=== PATIENT | female | born 1940 | race Caucasian/White ===

== ENCOUNTER 2016-03-22 18:38 | Inpatient (IN) | payer OTHER, BC ==
[~2016-03-22] VITALS: Ht 157.5 cm; Wt 84.4 kg
--- NOTE | ~2016-03-22 | EKG ---
[address] [address] ELECTROCARDIOGRAM REPORT Name: LUIS REDMOND Room #: 208-P [facility] IN M.R.#: [id number] Admission: 03/22/16 Attend Phys: Leo Treviño Discharge: Date of : 42 Report #: [id number] THIS REPORT FOR: //name// [facility] ED Test Date: 2016-03-22 Test Time: 18:42:22 Pat Name: LUIS SERRANO Department: Room: 208 Gender: F [employer] Attendant: [facility] : 1940 Requested By: Kaycee Huerta Order Number: [id number] MD: Christ Trujillo Measurements Intervals [place] Rate: 82 P: 53 NH: 148 QRS: -6 QRSD: 94 T: -6 QT: 402 QTc: 470 Interpretive Statements Sinus rhythm Borderline T abnormalities, diffuse leads No previous ECG available for comparison Electronically Signed On 03-23-2016 8:20:57 LANDSCAPE DESIGNER by Christ Trujillo [email or web address] <ELECTRONICALLY SIGNED> By: Christ Trujillo MD 03/23/16 0820 184 41 Christ Trujillo MD /TEJAL
--- NOTE | ~2016-03-22 | HC ---
[facility] [place] [address] CONSULTATION Name: TIFFANIE SERRANOLUIS Raul Room #: 208-P [facility] IN .R.#: [id number] Admission: 03/22/16 Attend Phys: Leo Treviño Discharge: Date of : 42 Report #: [id number] THIS REPORT FOR: //name// CC: Leo Treviño Deborah Garnica DATE OF SERVICE: 03/23/2016 INDICATION: Elevated cardiac enzymes. HISTORY OF PRESENT ILLNESS: This is a very pleasant 76-year-old white female patient with a past history of dyslipidemia, hypertension, who presented to the Emergency Room because of shortness of breath. The patient states that the shortness of breath initially was present with exertion and developed associated nausea. She did not have any significant resting symptomatology, but it began quite suddenly from walking in her house from the kitchen. She had associated dizziness and lightheadedness, but had no chest tightness, heaviness, or fullness initially until it became a full pressure sensation after she sat down to rest. She states that she had never had any shortness of breath like this before and it only occurred when she tried to get up and move around. She had no recent fever, chills, night sweats. No cough. No productive purulent nasal discharge either. She had no dependent or nondependent edema and has not felt any significant palpitations. PAST MEDICAL HISTORY: Significant for: 1. Anxiety, depression syndrome. 2. Hypertension. 3. Migraine headaches. ALLERGIES: ENALAPRIL which caused anaphylaxis. MEDICATIONS: At home are levothyroxine 0.125 daily, amlodipine, pantoprazole, Zoloft, Demadex, and Imitrex. PAST SURGICAL HISTORY: 1. Appendectomy. 2. Thyroidectomy. 3. Broken leg. 4. Right total knee replacement. ELECTROCARDIOGRAM: Demonstrates normal sinus rhythm, regular ____, nonspecific ST-T wave changes. LABORATORY DATA: Demonstrates a potassium of 3.5, BUN and creatinine are 15 and 0.8. H and H is 14.0 and 43.4 with a platelet count of 275,000. [facility] [address] [place] [address] CONSULTATION Name: LUIS REDMOND Room #: 208-P [facility] IN ..#: [id number] Admission: 03/22/16 Attend Phys: Leo Treviño Discharge: Date of : 42 Report #: [id number] RADIOLOGIC: Chest x-ray failed to demonstrate any acute changes. REVIEW OF SYSTEMS: Except for symptoms previously mentioned and those that commensurate with comorbid state, the 10-point review of system is negative. PHYSICAL EXAMINATION: GENERAL: Well-developed, well-nourished white female, resting comfortably in no acute distress. VITAL SIGNS: Noted and reviewed in the chart. HEENT: Normocephalic, atraumatic. Pupils are equal, round, reactive to light and accommodation. Extraocular muscles are intact. Sclerae and conjunctivae are anicteric. NECK: JVD is normal. Carotid upstrokes are bilaterally symmetrical. No bruits are heard. No thyromegaly. No lymphadenopathy. LUNGS: Clear to auscultation. No wheezes, rhonchi or crackles. No CVA tenderness. CARDIAC: Demonstrates a regular rhythm. Normal first and second heart sounds. No ventricular or atrial gallops, no rubs noted. No murmurs. No lifts or heaves, PMI normal. ABDOMEN: Soft, nontender, nondistended. Normal bowel sounds. EXTREMITIES: Without cyanosis, clubbing or edema. Distal pulses are intact. DTR symmetrical. NEUROLOGIC: Cranial nerves 2-12 are grossly normal and symmetrical. PSYCHIATRIC: Alert, oriented with normal affect. SKIN: Warm and dry. IMPRESSION AND PLAN: 1. Exertional dyspnea. The patient's D-dimer is elevated and spiral CT demonstrates the presence of a pulmonary embolus. I am going to get an echocardiogram to confirm the diagnosis and that there is no other etiology for shortness of breath and then we will proceed accordingly. 2. Hypertension ____ at this junction, continue monitoring closely. 3. Elevated troponins ____ this is not a nonSTEMI, but likely due to pulmonary emboli. <ELECTRONICALLY SIGNED> By: Bryan Raygoza MD 03/24/16 1133 02 0100 Bryan Raygoza MD /nt
--- NOTE | ~2016-03-22 | 2DMMODE ---
[facility] [place] [address] 2 D/M-MODE ECHOCARDIOGRAM Name: TIFFANIE LUIS SERRANO Room #: 208-P [facility] [place] ..#: [id number] Admission: 03/22/16 Attend Phys: Leo Rushing Discharge: Date of : 42 Date of Service: 03/23/16 0934 Report #: [id number] THIS REPORT FOR: //name// Transthoracic Echocardiography Ordering physician: Pearl Story Referring physician: Deborah Garnica [address] Design Engineer: JUS Richardson Indications/History: Pulmonary embolism. BP: 150 / HR: 89bpm Height: 62in Weight: 176.6lb 91 Study data: M-mode, complete 2D, complete spectral Doppler, and color Doppler. Location: Echo laboratory. Routine. Image quality was good. 2D measurements Normal Normal LVID ED 35.6mm 36-57 IVS ED 10.9mm 6-11 LVID ES 23.7mm 23-40 LVPW ED 10.7mm 6-11 LA volume 20ml/m2 16-28 AoRoot diam 27.4mm 21-37 index ED LVOT diameter 20mm 18-23 Findings: Left ventricle: The cavity size was normal. Wall thickness was normal. Systolic function was normal. The estimated ejection fraction was in the range of 60% to 65%. Wall motion was normal. Right ventricle: The cavity size was dilated. Systolic function was reduced by visual assessment. Right atrium: The atrium was dilated. Left atrium: The atrium was normal in size. Volume index: 20ml/m2 (S). Aortic valve: Trileaflet; mildly calcified leaflets. Doppler: There was no stenosis. No regurgitation. [facility] [address] [place] [address] 2 D/M-MODE ECHOCARDIOGRAM Name: LUIS REDMOND Room #: 208-P [facility] [place] M.R.#: [id number] Admission: 03/22/16 Attend Phys: Leo Rushing Discharge: Date of : 42 Date of Service: 03/23/16 0934 Report #: [id number] Peak velocity: 149.5cm/s (S). Mitral valve: Structurally normal valve. Doppler: There was no evidence for stenosis. No regurgitation. Peak E-wave velocity: 65.3cm/s. Peak A-wave velocity: 98.9cm/s. Tricuspid valve: Structurally normal valve. Doppler: There was no evidence for stenosis. Mild-moderate regurgitation. Regurgitant peak velocity: 318.8cm/s. Peak RV-RA gradient: 41mm Hg (S). Pulmonic valve: Structurally normal valve. Doppler: There was no evidence for stenosis. Trivial regurgitation. Pericardium: There was no pericardial effusion. Aorta: Aortic root: The aortic root was normal in size. Pulmonary artery: Systolic pressure was estimated to be 51mm Hg. Diastolic function: Doppler parameters are consistent with abnormal left ventricular relaxation (grade 1 diastolic dysfunction). Systemic veins: Inferior vena cava: The vessel was dilated; the respirophasic diameter changes were in the normal range (= 50%). Conclusions 1. Left ventricle: The cavity size was normal. Wall thickness was normal. Systolic function was normal. The estimated ejection fraction was in the range of 60% to 65%. 2. Right ventricle: The cavity size was dilated. 3. Right atrium: The atrium was dilated. 4. Aortic valve: Trileaflet; mildly calcified leaflets. 5. Mitral valve: Structurally normal valve. 6. Pulmonic valve: Trivial regurgitation. 7. Tricuspid valve: Structurally normal valve. Mild-moderate regurgitation. 8. Pulmonary arteries: Systolic pressure was estimated to be 51mm Hg. 9. Inferior vena cava: The vessel was dilated; the [facility] [address] [place] [address] 2 D/M-MODE ECHOCARDIOGRAM Name: LUIS REDMOND Room #: 208-P [facility] [place] M.R.#: [id number] Admission: 03/22/16 Attend Phys: Leo Rushing Discharge: Date of : 42 Date of Service: 03/23/16 0934 Report #: [id number] respirophasic diameter changes were in the normal range (= 50%). <ELECTRONICALLY SIGNED> By: Bryan Raygoza MD 03/23/16 1106 0934 1106 Bryan Raygoza MD /estuardo
[2016-03-22 18:40] VITALS: BP 144/94
[2016-03-22] MEDS ORDERED: LEVOTHYROXIN0.125 M1 PO (19:47)
[2016-03-22] MEDS ORDERED: NORVASC5 MG PO (19:47)
[2016-03-22] MEDS ORDERED: PANTOPRAZOLE SO40 M1 PO (19:48)
[2016-03-22] MEDS ORDERED: ZOLOFT50 MG PO (19:48)
[2016-03-22 20:03] LABS: ABSOLUTE NEUTROPHILS 7.4 thou/uL (1.4-8.2); BASOPHILS 0.6 % (0.0-2.0); EOSINOPHILS 1.6 % (0.0-3.0); HEMATOCRIT 43.4 % (37.0-47.0); LYMPHOCYTES 16.2 % (24.0-44.0); MCHC 32.2 % (28.0-37.0); MCV 83.8 fL (80.0-100.0); MONOCYTES 8.1 % (1.0-8.0); PLATELET COUNT 275 thou/uL (150-400); POLYS 73.5 % (36.0-66.0); RBC 5.17 mil/uL (4.20-5.00); RDW 16.2 % (10.5-14.5); WBC 10.1 thou/uL (4.0-11.0)
[2016-03-22 20:07] LABS: MANUAL DIFF NO
[2016-03-22] MEDS ORDERED: DEMADEX20 MG PO (20:07)
[2016-03-22] MEDS ORDERED: IMITREX100 MG PO (20:07)
[2016-03-22 20:08] LABS: CALCIUM 8.8 mg/dL (8.5-10.1); CREATININE 0.8 mg/dL (0.6-1.3); POTASSIUM 3.5 mmol/L (3.5-5.1)
[2016-03-22 20:18] LABS: ALBUMIN 3.6 g/dL (3.4-5.0); TOTAL BILIRUBIN 0.4 mg/dL (<0.1-1.0); TOTAL PROTEIN 7.4 g/dL (6.4-8.2); TROPONIN-I 0.56 ng/mL (<0.04-0.07)
[2016-03-22 20:51] LABS: APTT 26.6 Seconds (24.5-32.8); PROTIME 10.2 Seconds (9.3-11.4)
[2016-03-22 21:08] VITALS: BP 139/100
[2016-03-22 22:30] VITALS: BP 145/96
[2016-03-23] MEDS ORDERED: TOPAMAX 25 MG T25 M1 PO (02:39)
[2016-03-23 03:30] LABS: CHOLESTEROL 203 mg/dL (<200); HDL CHOLESTEROL 61 mg/dL (>40); LDL CHOLESTEROL 119 mg/dL (<100); TC:HDL 3.3 Ratio (Not establshd); TRIGLYCERIDE 117 mg/dL (<150); VLDL 23 mg/dL (<40)
[2016-03-23 03:31] LABS: SERUM ASSESSMENT Clear
[2016-03-23 03:59] VITALS: BP 150/91
[2016-03-23 10:17] VITALS: BP 153/89
[2016-03-23 12:17] VITALS: BP 136/84
[2016-03-23 17:14] VITALS: BP 149/88
[2016-03-23 20:37] VITALS: BP 127/81
[2016-03-24 03:37] LABS: HEMATOCRIT 41.3 % (37.0-47.0); HEMOGLOBIN 13.2 gm/dL (12.0-15.0); MCH 26.4 pg (26.0-34.0); MCHC 31.9 % (28.0-37.0); MCV 82.8 fL (80.0-100.0); RBC 4.99 mil/uL (4.20-5.00); RDW 16.4 % (10.5-14.5); WBC 8.6 thou/uL (4.0-11.0)
[2016-03-24 03:40] VITALS: BP 156/78
[2016-03-24 03:45] LABS: INR 1.1; PROTIME 11.7 Seconds (9.3-11.4)
[2016-03-24 08:50] VITALS: BP 139/78
[2016-03-24 11:55] VITALS: BP 136/80
[2016-03-24 16:00] VITALS: BP 1398/77
[2016-03-24 21:01] VITALS: BP 160/97
[2016-03-25 03:57] LABS: HEMATOCRIT 38.6 % (37.0-47.0); HEMOGLOBIN 12.6 gm/dL (12.0-15.0); INR 1.5; MCH 26.8 pg (26.0-34.0); MCHC 32.6 % (28.0-37.0); MCV 82.2 fL (80.0-100.0); PROTIME 15.3 Seconds (9.3-11.4); RBC 4.7 mil/uL (4.20-5.00); RDW 16.1 % (10.5-14.5); WBC 8.2 thou/uL (4.0-11.0)
[2016-03-25 04:14] VITALS: BP 150/82
[2016-03-25 08:30] VITALS: BP 149/71
[2016-03-25 11:15] VITALS: BP 131/68
[2016-03-25 16:50] VITALS: BP 157/89
[2016-03-25 20:45] VITALS: BP 148/63
[2016-03-26 03:51] VITALS: BP 143/88
[2016-03-26 05:29] LABS: PROTIME 31.7 Seconds (9.3-11.4)
[2016-03-26 05:43] LABS: INR 3.1
[2016-03-26 08:00] VITALS: BP 154/96
[2016-03-26] MEDS ORDERED: COUMADIN 4 MG TA4 M1 PO (10:28)
[2016-03-26 13:18] VITALS: BP 154/96
== END 2016-03-26 14:00 | disposition home or self-care (01) | DRG 299 ==
LOC: ER 18:38 → EROBS 20:40 → 2N 20:40
PROVIDERS: Emergency Medicine; Hospitalist; Nurse Practitioner Acute Care; Physician Assistant
DX: I82.431 Acute embolism and thrombosis of right popliteal vein (principal); I26.99 Other pulmonary embolism without acute cor pulmonale; I10 Essential (primary) hypertension; E78.5 Hyperlipidemia, unspecified; Z96.651 Presence of right artificial knee joint; F41.9 Anxiety disorder, unspecified; F32.9 Major depressive disorder, single episode, unspecified; G43.909 Migraine, unspecified, not intractable, without status migrainosus; Z96.611 Presence of right artificial shoulder joint; E03.9 Hypothyroidism, unspecified; K57.90 Diverticulosis of intestine, part unspecified, without perforation or abscess without bleeding; K21.9 Gastro-esophageal reflux disease without esophagitis; E16.2 Hypoglycemia, unspecified; Z81.8 Family history of other mental and behavioral disorders; Z98.890 Other specified postprocedural states; Z88.8 Allergy status to other drugs, medicaments and biological substances; Z91.012 Allergy to eggs; Z79.82 Long term (current) use of aspirin; Z79.899 Other long term (current) drug therapy; Z83.79 Family history of other diseases of the digestive system; Z82.49 Family history of ischemic heart disease and other diseases of the circulatory system; Z80.42 Family history of malignant neoplasm of prostate; Z80.3 Family history of malignant neoplasm of breast; Z82.3 Family history of stroke
CPT/HCPCS: 10081

== ENCOUNTER 2016-07-22 17:16 | Observation (INO) | payer OTHER, BC ==
[~2016-07-22] VITALS: Ht 157.5 cm; Wt 80.3 kg
--- NOTE | ~2016-07-22 | EKG ---
[address] [address] ELECTROCARDIOGRAM REPORT Name: LUIS REDMOND Room #: 170-[address] [place] [address]#: [id number] Admission: 07/22/16 Attend Phys: Jermaine Clarke MD Discharge: Date of : 42 Report #: [id number] THIS REPORT FOR: //name// [facility] ED Test Date: 2016-07-22 Test Time: 17:48:32 Pat Name: LUIS SERRANO Department: Room: 170 Gender: F [employer] Engineering Manager: [employer] : 1940 Requested By: Max King Order Number: [id number] MD: Christ Trujillo Measurements Intervals [place] Rate: 60 P: 40 MD: 163 QRS: -13 QRSD: 90 T: 5 QT: 435 QTc: 435 Interpretive Statements Sinus rhythm Left ventricular hypertrophy Compared to ECG 03/22/2016 18:42:22 Left ventricular hypertrophy now present T-wave abnormality no longer present Electronically Signed On 07-22-2016 19:32:13 CDT by Christ Trujillo [email or web address] <ELECTRONICALLY SIGNED> By: Christ Trujillo MD 07/22/16 1932 1748 1748 Christ Trujillo MD /EPI
[~2016-07-22 17:16] MED LIST: COUMADIN 4 MG TA4 M1 PO; DEMADEX20 MG PO; IMITREX100 MG PO; LEVOTHYROXIN0.125 M1 PO; NORVASC5 MG PO; PANTOPRAZOLE SO40 M1 PO; TOPAMAX 25 MG T25 M1 PO; ZOLOFT50 MG PO
[2016-07-22 17:20] VITALS: BP 122/57
[2016-07-22 18:15] LABS: ABSOLUTE NEUTROPHILS 4.7 thou/uL (1.4-8.2); BASOPHILS 0.8 % (0.0-2.0); EOSINOPHILS 3.3 % (0.0-3.0); HEMATOCRIT 35.3 % (37.0-47.0); HEMOGLOBIN 11.4 gm/dL (12.0-15.0); LYMPHOCYTES 26.1 % (24.0-44.0); MANUAL DIFF NO; MCH 25.1 pg (26.0-34.0); MCHC 32.2 g/dL (28.0-37.0); MCV 77.9 fL (80.0-100.0); PLATELET COUNT 266 thou/uL (150-400); POLYS 60.8 % (36.0-66.0); RBC 4.53 mil/uL (4.20-5.00); RDW 16.8 % (10.5-14.5); WBC 7.7 thou/uL (4.0-11.0)
[2016-07-22 18:31] LABS: ANION GAP 10 mmol/L (7-16); BUN 21 mg/dL (7-18); CHLORIDE 107 mmol/L (98-107); CO2 24 mmol/L (21-32); CREATININE 0.8 mg/dL (0.6-1.0); GLUCOSE 117 mg/dL (74-106); POTASSIUM 3.2 mmol/L (3.5-5.1); SODIUM 141 mmol/L (136-145)
[2016-07-22 18:36] LABS: ALBUMIN 3.3 g/dL (3.4-5.0); ALKALINE PHOSPHATASE 81 U/L (46-116); SGOT 16 U/L (15-37); SGPT 17 U/L (30-65); TOTAL BILIRUBIN 0.2 mg/dL (<0.1-1.0); TOTAL PROTEIN 6.7 g/dL (6.4-8.2); TROPONIN-I < 0.04 ng/mL (<0.04-0.07)
[2016-07-22 19:51] LABS: INR 1.2; PROTIME 12.7 Seconds (9.3-11.4)
[2016-07-22 20:50] VITALS: BP 130/71
[2016-07-22] MEDS ORDERED: COUMADIN 2 MG TA2 M1 PO (20:56)
[2016-07-22] MEDS ORDERED: LIPITOR10 MG PO (21:01)
[2016-07-22] MEDS ORDERED: VITAMIN D1000 UNI1 PO (21:02)
[2016-07-22] MEDS ORDERED: BENADRYL25 MG PO (21:03)
[2016-07-22 23:41] VITALS: BP 119/66
[2016-07-23 04:29] VITALS: BP 135/76
[2016-07-23 06:32] LABS: CALCIUM 7.7 mg/dL (8.5-10.1); CREATININE 0.8 mg/dL (0.6-1.0)
[2016-07-23 06:33] LABS: INR 1.4; POTASSIUM 4.5 mmol/L (3.5-5.1)
[2016-07-23 07:15] VITALS: BP 139/75
[2016-07-23 08:00] VITALS: BP 139/75
[2016-07-23 08:47] VITALS: BP 139/75
[2016-07-23 08:48] VITALS: BP 139/75
== END 2016-07-23 10:50 | disposition home or self-care (01) ==
LOC: ER 17:16 → 2N 18:42 → EROBS 18:42 → 2N 20:23
PROVIDERS: Emergency Medicine; Nurse Practitioner Acute Care; Physician Assistant
DX: R07.89 Other chest pain (principal); I10 Essential (primary) hypertension; E78.5 Hyperlipidemia, unspecified; I82.409 Acute embolism and thrombosis of unspecified deep veins of unspecified lower extremity; I26.99 Other pulmonary embolism without acute cor pulmonale; E03.9 Hypothyroidism, unspecified; E87.6 Hypokalemia; F80.82 Social pragmatic communication disorder; Z72.89 Other problems related to lifestyle; Z87.891 Personal history of nicotine dependence